=== PATIENT | male | born 1980 | race African-American/Black ===

== ENCOUNTER 2020-11-05 15:46 | Emergency (ER) | payer MEDICAID ==
[~2020-11-05] VITALS: Ht 170.2 cm; Wt 73.0 kg
[~2020-11-05 15:46] MED LIST: BACL-141 PO; GABA400C PO; LEVO500T2 PO; TRAZ-251 PO
[2020-11-05 15:48] VITALS: BP 105/62
== END 2020-11-05 18:00 | disposition home or self-care (01) ==
LOC: ER 15:46
DX: Z43.3 Encounter for attention to colostomy (principal)
CPT/HCPCS: 99281